=== PATIENT | female | born 1985 | race Caucasian/White ===

== ENCOUNTER 2018-04-22 04:43 | Inpatient (IN) | payer MEDICAID, OTHER ==
[~2018-04-22 04:43] MED LIST: HALOPERIDOL LACT 5 MG/ML INJ ONE; LORazepam 2 MG/ML INJ ONE
[2018-04-22] MEDS ORDERED: MIDAZOLAM 10 MG/2 ML VIAL IM ONE (05:00)
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
[2018-04-22 08:04] LABS: PLATELET COUNT 368 10^3/uL (150-400)
[2018-04-22] MEDS ORDERED: QUEtiapine FUMARATE 50 MG TAB PO ONE (09:32)
[2018-04-22] MEDS ORDERED: OLANZapine 5 MG TAB PO ONE (15:23)
[2018-04-22] MEDS ORDERED: OLANZapine 10 MG/2 ML VIAL ONE (17:56)
[2018-04-22] MEDS ORDERED: LORazepam 2 MG/ML INJ ONE (18:00)
[2018-04-22] MEDS ORDERED: HALOPERIDOL LACT 5 MG/ML INJ ONE (18:00)
[2018-04-22] MEDS ORDERED: HALOPERIDOL LACT 5 MG/ML INJ IM ONE (18:04)
[2018-04-22] MEDS ORDERED: LORazepam 2 MG/ML INJ IM ONE (18:04)
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
--- NOTE | 2018-04-23 15:20 | ASMTTCLDSP ---
TLC Discharge Disposition Disposition: Answers: Admit Disposition Notes: Notes: Pt refused to complete BDI and BSS in the ED. Discharge Concerns/Recommendations: Notes: Per [facility] worker consultation with [facility] ED physician, Dr Cindi Roger MD and [facility] on-call supervisor brine with Sammy Vazquez, both concurred that pt appears to meet 27-65 criteria requiring psychiatric hospitalization as pt appears to be an imminent risk of harm to self/others/gravely disabled due to a mental illness condition. Pt was given the 3N prohibited belongings list while in the ED. [facility] on-call psychiatrist Rupert Bates agreed to accept pt for admission to 3. Was patient given the Answers: Yes Inpatient [facility] Prohibited Belongings List while in the ED? For inpatient Rupert Bates admission, the following psychiatrist agreed to accept patient for admission to [facility] Type of Hold: Answers: M1/72-hour Hold Hold initiated by: Answers: Police Date Signed: 04/23/2018 03:19 PM Electronically Signed By:Cindy Smart
[2018-04-23] MEDS ORDERED: MAG HYDROX/AL HYDROX/SIMETH 30 ML UDCUP PO PRN (15:51)
[2018-04-23] MEDS ORDERED: LORazepam 0.5 MG TAB PO PRN (15:51)
[2018-04-23] MEDS ORDERED: ACETAMINOPHEN 325 MG TAB PO PRN (15:51)
[2018-04-23] MEDS ORDERED: MAGNESIUM HYDROXIDE 30 ML UDCUP PO PRN (15:51)
[2018-04-23] MEDS ORDERED: OLANZapine DISINTEGR 10 MG TAB PO PRN (15:51)
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
--- NOTE | 2018-04-24 10:43 | PDMN ---
Medical Necessity Medical necessity: [facility] [id number] Other Psychotic Disorders, Adult: Inpatient Care. 33y/o Patient dx w/ unspecified psychosis, arrived via police involuntarily. On M1 hold, danger to self and others, gravely disabled. Hx bipolar and jamari episodes.
--- NOTE | 2018-04-24 14:22 | ASMTBHMTP ---
Master Treatment Plan Master Treatment Plan Answers: Mood Instability with for: Psychosis Date: 04/24/2018 Diagnosis on Admission: Bipolar 1 Disorder Expected length of stay: 3-5 Days Reason for admission: Notes: 33 year old female who was brought in by police on M1 hold after she was found naked outside of an apt. building. Pt. had reported she had a few crazy days when she was not taking care of herself. Pt. does not remember being nude. Patient's stated presenting problems: Notes: Don't know exactly what happened. Patient's goals for treatment: Notes: Keep my head down and get out of here Patient's strengths: Notes: Don't know. 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 Master Treatment Plan Required Signatures Psychiatrist signature: Answers: Bg Rivas MD: RN on-shift signature: Answers: RN: Patient signature: Answers: Patient: Date Signed: 04/24/2018 09:29 AM Electronically Signed By:Lora Villa
--- NOTE | 2018-04-24 14:26 | ASMTCMCOM ---
CM Note CM Note Notes: Pt. reports not knowing exactly what happened prior to her being arrested and brought to the hospital. Pt. stated she started "seeing tracers" and felt as though she was having an LSD trip. Pt. denies all drug use. Pt. reports "bumming smokes [from strangers]" and drinking out of water bottles she finds on the street. Pt. stated she may stay with her family in [place] for a little while after discharge Pt. stated she is unsure if she has any current legal issues adding she was "aggressively arrested" prior to being hospitalized. Pt. reports being hospitalized in the past, but refused to discuss this. Pt. reports PTSD symptoms but refuse to discuss her PTSD. Date Signed: 04/24/2018 02:25 PM Electronically Signed By:Lora Villa
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
--- NOTE | 2018-04-24 16:23 | BCON ---
[f rep st] BEHAVIORAL HEALTH CONSULTATION INTERNAL MEDICINE CONSULTATION DATE OF CONSULTATION: 04/24/2018 REFERRING PHYSICIAN: Jann Schafer NP REASON FOR REFERRAL: Medical clearance for inpatient behavioral health stay. HISTORY OF PRESENT ILLNESS: This patient was brought to the emergency department by police eventually was placed on on an M1 hold. She had been found standing outside of an apartment naked and there was a body in the apartment per the emergency department report. Apparently, the police did not think that she was a suspect in the of the person in the apartment. She was very combative initially, but eventually was medicated adequately. She was considered to be acutely manic and was admitted for further psychiatric care. She currently complains of a vaginitis, which she thinks is yeast. There is no discharge, but there is pruritus. She also thinks she has had a little bit of a sore throat, but this has improved. Otherwise, she is without acute complaints. PAST MEDICAL HISTORY: 1. Mental health issues including PTSD and a diagnosis of bipolar. 2. Vaginitis. PAST SURGICAL HISTORY: She has had oral surgery. MEDICATIONS: Prior to admission: 1. Acetaminophen 325 mg p.r.n. 2. Carboxymethylcellulose eyedrops p.r.n. 3. Naproxen 220 mg p.o. b.i.d. p.r.n. 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 She is originally from [place] where her parents live. She is a smoker. She uses occasional alcohol. FAMILY HISTORY: Noncontributory. REVIEW OF SYSTEMS: Other than a slight sore throat and the vaginitis symptoms, a 10-point review of systems was conducted and was negative. Denies URI or allergic symptoms, including no itchy eyes, no head congestion and no runny nose and no cough. PHYSICAL EXAM: VITAL SIGNS: Blood pressure is 113/67, heart rate is 62, respiratory rate is 14, oxygen saturation is 96% on room air, temperature is 36.6 degrees centigrade. Her weight is 69 kg for a body mass index of 23.8. GENERAL: This is a well-nourished, well-developed woman, cooperative and in no acute distress. HEENT: Extraocular movements are intact. Pupils are equal, round, reactive to light. Mucous membranes are moist. Dentition is in good condition. NECK: Supple. HEART: Regular rate and rhythm with no murmurs, rubs, or gallops. LUNGS: Clear to auscultation bilaterally. ABDOMEN: Benign. EXTREMITIES: There is no cyanosis, clubbing, or edema. NEUROLOGIC: She is alert and oriented x3. Cranial nerves 2-12 are grossly intact. There is no focal weakness. Sensation is intact to light touch. Gait is within normal limits. LABORATORY DATA: Laboratory studies from 2 days ago, BMP showed a slightly elevated sodium of 146, and a slightly low carbon dioxide at 20. Otherwise, renal function and electrolytes were within normal limits. Yesterday, she had a benign lipid panel. Hemoglobin A1c was normal at 5.0. Liver function tests revealed a slightly elevated AST at 69, otherwise, were completely normal. Beta hCG was negative for . Hematology 2 days ago showed an elevated white blood cell count of 12.37 with no left shift. It was predominantly neutrophils and monocytes. Toxicology screen in the serum was negative for ethyl alcohol and the urine was negative for any substances of abuse. ASSESSMENT AND RECOMMENDATIONS: 1. Mental health issues. Pending further evaluation and management per Psychiatry and the mental health team. 2. Tobacco dependence syndrome. She was encouraged to quit smoking. 3. Vaginitis. She reports that she uses miconazole nitrate and I see this has been ordered and is appropriate. If she continues to have symptoms despite treatment with the 7 days of vaginal miconazole suppository, then further evaluation could be considered. I see no medical contraindications to this patient's continued stay on the inpatient behavioral health unit or to any psychiatric medications or procedures. Thank you very much for including me in the care of this patient and please do not hesitate to contact me or the hospitalist service should there be need for further medical evaluation. /[id number]/MODL MTDD
[2018-04-24] MEDS: MICONAZOLE NITRATE 100 MG VG SCH (17:37)
[2018-04-24] MEDS ORDERED: OLANZapine DISINTEGR 10 MG TAB PO SCH (21:00)
[2018-04-25] MEDS: [UNRECOGNIZED DRUG - OTHER] PO SCH (08:17)
--- NOTE | 2018-04-25 14:08 | ASMTCMCOM ---
CM Note CM Note Notes: Pt. reports "haning in there". Pt. stated she did get her monistat medication last night. Pt. stated she refused Zyprexa last night, adding "was on in the past, was horrible in past". Pt. reports wanting a integrative psychiatrist, and naturopathic medicine. Pt. stated she has combined every system of medicine she has come across into a system that works best for her. Pt. requested to know when she will discharge so she can make an appointment with her preferred MD. Pt. agreed to allow CC to make follow-up appointments and listed several MDs and therapists, including Dr. Kaye, and Shakir Rivas - therapist in [facility], and Dr. Baltazar. Pt. reports not being comfortable in the hospital and not sleeping well. Pt. stated she has 15 primary objectives and the main one is getting good sleep, which pt. stated she cannot do in this hospital. Pt. denied SI, HI, and AVH. Pt. stated she has paranoia "from being in places like this (began to cry). This is a bad place. I don't want to be here anymore". Pt. presents as labile at times, groomed, alert, disorganized, and with good eye contact. Staff report pt. using yogurt on her yeast infection. Staff report pt. sleeping 10 hours and refusing evening medication. Date Signed: 04/25/2018 02:08 PM Electronically Signed By:Lora Villa
[2018-04-25] MEDS ORDERED: MELATONIN 3 MG TAB PO PRN (17:20)
--- NOTE | 2018-04-25 17:26 | SOAPPROG ---
SOAP Progress Note Assessment/Plan: Assessment: 33 yo unmarried woman with h/o Bipolar disorder which has not been adequately treated for many years. She was admitted d/t recent manic episode when she was running around naked outside her apartment building and was BIB [place] PD on M1. Plan: 04/24/18 15:21 1. and CC met with [facility] for long time today. [facility] lives in [place] and has limited contact with patient since she moved to [place]. However, [facility] reports significant h/ o manic episodes starting at age 17 yo. The last episode occurred in 2014 when [place] was arrested in [place] for cutting luevano in public and screaming at passersby. She was involuntarily hospitalized for "almost 60 days" per [facility]. She was given Laughlin by court order b/c she refused to consent to medication. Prior to that, patient was hospitalized in [place], [place] in 2008 for similar episode. She was in hospital x 1 month and also placed on lithium per court order. [facility] states that patient is "usually calm and mild" when she isn't manic. [facility] credits her with having some insight, but not enough to seek voluntary mental health treatment or take medications when she isn't in hospital under court order. [facility] states that patient was taking chemistry class at [employer] this Summer. Patient felt the class was difficult and stressful. [facility] reports patient has been feeling sad, depressed for several months, and a PCP at [facility] started her on Wellbutrin in 12/2017. [facility] doesn't think patient was taking medication regularly. Patient told [facility] she has smoked marijuana "about a week ago." [facility] reports that patient used ETOH and THC regularly between [id number], but states patient has been "sober" since 2012. However, [facility] admits that she lives in [place] and doesn't know what patient does. [facility] says patient started sounding "different" on phone about a week ago. That's when [facility] thinks this current manic episode started. 2. [facility] reports patient was first dx with Bipolar disorder at age 17 yo. She tried Depakote, Trileptal and Lamictal but didn't stay on any of these meds for more than a month per [facility]. There were no adverse SE's according to [facility], but patient just "didn't like taking meds." [facility] states patient has never voluntarily taken any meds since 17 yo. 3. Police have reported that a homeless man OD'd on drugs in patient's apartment , but they aren't charging patient with any crime. 4. Patient is refusing any psychotropic medication. Will order Zyprexa 10mg PO QHS in addition to 5mg PO Q4H PRN in case she changes her mind. 5. Will likely need to petition for court order medications. Laughlin and VPA are likely to be most effective options given MO's report. 6. Will place on STC when M1 expires. 7. Patient has yeast infection. Will order Monistat 7 to treat. 8. [facility] also brought in bottle of probiotic supplements which patient can take. 9. Request hospitalist to evaluate and make recommendations for further tx. 04/25/18 17:21 1. Patient states she doesn't need "Western medicine" to treat her bipolar disorder. She wants to resume working with "naturopathic doctor, energy healer and Tibetan healer" at [facility] in [place] and here in [place]. She says "I told all this to the woman (Lora, the ) and she wrote it all down." MD encouraged her to consent to trial of Laughlin since this was helpful for her during her previous 2 psych hospitalizations (in [place] in 2014 and in [place] in 2008). Patient says "you don't know what you're talking about...you're wrong. " 2. MD explained why patient was being placed on STC and the criteria for coming off cert, including resolution of psychotic sxs, no unsafe or reckless bxs, and stable mood. Patient said she would "get a legal team" and fight the STC in court. 3. Staff had to remind patient not to put yogurt on her vagina. She thought this was an effective tx for her yeast infx. MD encouraged her to use Monistat instead. 4. Patient requested melatonin for sleep. 5. STC Subjective: Met with patient, reviewed chart and d/w staff. MD met with patient and her MOC during visiting time. Patient insisted she could present "my side of things" and show bmx rider in court that she didn't need to take "Western medicine." She insists that she would benefit more from "Tibetan healers" than she would from psychotropic medications. She refuses to take Olanzapine and any other "of your drugs" except for melatonin because "it's natural." Objective: Vital Signs Temp Pulse Resp BP Pulse Ox 36.7 C 56 L 14 106/58 L 97 04/25/18 06:00 04/25/18 06:00 04/25/18 06:00 04/25/18 06:00 04/25/18 06:00 MSE: Affect: Irritable at times, labile Mood: "Fine" TP: Disorganized, illogical TC: Denies any SI/HI, denies AH/VH, still delusional Insight/ Judgment: Impaired - Time Spent With Patient Time Spent With Patient: 25" - Pending Discharge Pending Discharge Within 24 Hours: No Pending Discharge Within 48 Hours: No ICD10 Worksheet Patient Problems: Problems Problem Status Onset Psychosis Acute
[2018-04-25] MEDS: MICONAZOLE NITRATE 100 MG VG SCH (21:18)
[2018-04-26] MEDS: [UNRECOGNIZED DRUG - OTHER] PO SCH (08:29)
--- NOTE | 2018-04-26 10:55 | SOAPPROG ---
SOAP Progress Note Assessment/Plan: Assessment: Bipolar I Disorder. Current hypomania. Patient is not safe to discharge at this time as patient continues to exhibit signs of jamari, and express jamari ( irritability, agitation) symptoms. Patient requires continued inpatient care because of current mood instability, and requires inpatient level of care to stabilize in order to no longer be a danger to himself/herself, gravely disabled due to mental illness. Patient could benefit from continued inpatient hospitalization for crisis stabilization, safety, and medication evaluation. Plan: Review psychotropic medication treatment informed consent and recommendations. After reviewing options, risk and benefits, patient agrees to continue medications with the following changes. Medication changes include start trial of Zyprexa Zydis 10 mg po QHS. No other medication changes at this time as more time is needed to determine ongoing tolerability and efficacy. Plan is to continue to observe patient for response and side effects from medications, and ongoing monitoring and evaluation. Next steps are for patient to meet with hospice home care coordinator to plan a safe discharge plan and establish outpatient services for ongoing treatment. Consider discharge on Thursday if patient is in stable condition, safe, and has a safe discharge plan. PSYCHOTROPIC MEDICATION TREATMENT INFORMED CONSENT and RECOMMENDATIONS: Review nature of condition, diagnosis, and prognosis. Review nature and purpose of psychotropic medication treatment. Review type of psychotropic medications being ordered. Review risk and benefits of psychotropic medication treatment. Review probable length of time patient will need to take medications. Review risk and benefits of not undergoing psychotropic medication treatment. Review alternative treatments to psychotropic medications. Review psychotropic medications contraindications, drug-drug interactions, side effects, and importance of reporting any side effects to a psychiatric provider or nurse during inpatient hospitalization, and upon discharge to patients psychiatric outpatient provider, primary care provider, or other health rn complex care. Review importance of asking a nurse, psychiatric provider, or primary care provider any questions or problems concerning the psychotropic medications. Verify patient understands the information that has been provided, and understands, accepts, and agrees to psychotropic medications. Review patients safety plan and importance of patient to report to staff while hospitalized if patient is ever a danger to self/others, or unable to care for self, and upon discharge, the importance for patient to contact [facility] or 1, or go to the nearest emergency room, if patient is ever a danger to self/others, or unable to care for self. Recommend that upon discharge patient establish medication management treatment with a psychiatric provider, establishes routine therapy appointments, and follow-up with primary care provider. Verify patient understands and agrees to these recommendations. 04/26/18 11:40 Subjective: Following up with patient for evaluation of jamari, depression, and safety. Patient reports, "Not sleeping very well." Patient expresses the following psychiatric symptoms anxiety. Patient reports appetite as good, and reports eating all meals. Patient describes getting about 6 hours of sleep, and states she awoke several times throughout the night. Objective: Vital Signs Temp Pulse Resp BP Pulse Ox 36.6 C 50 L 16 106/62 97 04/26/18 06:00 04/26/18 06:00 04/26/18 06:00 04/26/18 06:00 04/26/18 06:00 NURSING REPORT: Consulted with nursing for update on patients progress in treatment. Nurses report patient is engaged in treatment, is attending groups, slept 6.5 hours, expresses the following psychiatric symptoms: anxiety, exhibits the following psychiatric symptoms: hypertalkative and tangential; is eating all meals, is taking medications as prescribed with no report of side effects, with no s/s of EPS/akathisia, and denies SI/HI, A/V hallucinations. [employer]TLING T[employer]ER UPDATE: current working on setting up appointment for OP psychiatric follow-up. The patient is a well-nourished female looking stated chronological age. Attire is appropriate and dress is casual, and is neat. Grooming status is appropriate. Ambulation is independent. Gait is normal and coordinated. Posture is normal and relaxed. Eye contact is appropriate. Motor activity is appropriate with purposeful, organized, coordinated movements; with no involuntary movements. Attitude is cooperative and friendly. Patient appears distractible and does not relate well to this interviewer. Language production is spontaneous. Rate is pressured. Latency of response is shortened, with irritable tone, and appropriate volume, and amount is hypertalkative. Articulation is clear with no evidencing of speech impairments. Patient reports mood as agitated with labile, expansive, and inappropriate affect. Patients thought process is tangential with loose associations. Patient does not report suicidal/homicidal thoughts, ideas, or plans. Patient denies auditory, visual hallucinations. Patient denies delusions. Patient does not appear to be attending to internal stimuli. Patients attention and concentration are poor. Patient is oriented to person, place, time. Patients insight is poor. Patients judgment is poor. No evidence of gross cognitive dysfunction at any point during the interview. No evidence of apparent dysfunction in recent or remote memory. - Time Spent With Patient Time Spent With Patient: 30 minutes, met with patient individually. - Pending Discharge Pending Discharge Within 24 Hours: No Pending Discharge Within 48 Hours: No ICD10 Worksheet Patient Problems: Problems Problem Status Onset Psychosis Acute
[2018-04-26] MEDS: NICOTINE POLACRILEX 2 MG GUM B PRN (12:12)
--- NOTE | 2018-04-26 14:12 | ASMTCMCOM ---
CM Note CM Note Notes: Pt. reports she is "in shock" after learning about a body that was found in her home. Pt. stated she is scared about what happened. Pt. stated "not the level of stuff I'm used to dealing with". Pt. stated she no longer believes she has a yeast infection, but rather pt. believes she has a bacterial infection. Pt. stated she believes using yogurt externally will be helpful, CC advised against this. Pt. stated she has stopped using the Monistat. Pt. stated upon discharge she wants to visit family on [facility] the [facility], and then go to [place]. Pt. requested follow-up appointments with [facility], [facility], and with [facility] in [place]. Pt. stated she doesn't like [facility] but is somewhat willing to work with them if needed. Pt. denied SI, HI, AVH and paranoia. Pt. presents as liable, alert, wearing several layers of clothing and a shirt covering her hair, and with good eye contact. Staff report pt. sleeping 6.5 hours and pt. agreed to take Zyprexa. Date Signed: 04/26/2018 02:11 PM Electronically Signed By:Lora Villa
--- NOTE | 2018-04-26 14:38 | ASMTBHDC ---
Notes Note: Notes: CC spoke with Medicaid liaison who stated pt. is being place on . [place] waitlist. Provider notified and will inform pt. Date Signed: 04/26/2018 02:37 PM Electronically Signed By:Lora Villa
--- NOTE | 2018-04-26 14:51 | SOAPPROG ---
SOAP Progress Note Assessment/Plan: Assessment: Vaginitis: symptomatic despite treatment with Monistat. * D/C Monistat 04/26/2018. * Urine test for GC & Chlamydia. If positive, will treat, and test for other STDs. * If negative, consider presumptive treatment for bacterial vaginitis, which would also cover trichomonas. * Equipment not available on [facility] health unit for pelvic exam. Advise that nursing examine external genitalia for signs of tinea cruris or other skin or mucosal lesions. 04/26/18 14:48 Subjective: Informed that Monistat is not working and patient desires further evaluation. Objective: Vital Signs Temp Pulse Resp BP Pulse Ox 36.6 C 50 L 16 106/62 97 04/26/18 06:00 04/26/18 06:00 04/26/18 06:00 04/26/18 06:00 04/26/18 06:00 ICD10 Worksheet Patient Problems: Problems Problem Status Onset Psychosis Acute
[2018-04-26] MEDS ORDERED: OLANZapine 10 MG TAB PO SCH (21:00)
[2018-04-26] MEDS: MELATONIN 1 MG SL SCH ×2 (21:37→22:00)
[2018-04-26] MEDS: OLANZapine DISINTEGR 10 MG TAB PO SCH (21:37)
[2018-04-26] MEDS: MICONAZOLE NITRATE 100 MG VG SCH ×2 (21:37→21:59)
[2018-04-27] MEDS: [UNRECOGNIZED DRUG - OTHER] PO SCH (07:50)
--- NOTE | 2018-04-27 10:40 | SOAPPROG ---
SOAP Progress Note Assessment/Plan: Assessment: Bipolar I Disorder. Current hypomania; patient has improved since time of admission; continues to be tangential, labile, and irritable towards staff. Patient could benefit from continued inpatient hospitalization for crisis stabilization, safety, and medication evaluation. Patient requires inpatient level of care for medication evaluation and further observation to determine if jamari has resolved and patients mood reaches a level of stability that she can be managed by a lower level of treatment. Plan: Review psychotropic medication treatment informed consent and recommendations. After reviewing options, risk and benefits, patient agrees to continue current medications. No other medication changes at this time as more time is needed to determine ongoing tolerability and efficacy. Plan is to continue to observe patient for response and side effects from medications, and ongoing monitoring and evaluation. Next steps are for patient to meet with childcare teacher to plan a safe discharge plan and establish outpatient services for ongoing treatment. Consider discharge on if patient is in stable condition, safe, and has a safe discharge plan. PSYCHOTROPIC MEDICATION TREATMENT INFORMED CONSENT and RECOMMENDATIONS: Review nature of condition, diagnosis, and prognosis. Review nature and purpose of psychotropic medication treatment. Review type of psychotropic medications being ordered. Review risk and benefits of psychotropic medication treatment. Review probable length of time patient will need to take medications. Review risk and benefits of not undergoing psychotropic medication treatment. Review alternative treatments to psychotropic medications. Review psychotropic medications contraindications, drug-drug interactions, side effects, and importance of reporting any side effects to a psychiatric provider or nurse during inpatient hospitalization, and upon discharge to patients psychiatric outpatient provider, primary care provider, or other health live in caregiver. Review importance of asking a nurse, psychiatric provider, or primary care provider any questions or problems concerning the psychotropic medications. Verify patient understands the information that has been provided, and understands, accepts, and agrees to psychotropic medications. Review patients safety plan and importance of patient to report to staff while hospitalized if patient is ever a danger to self/others, or unable to care for self, and upon discharge, the importance for patient to contact [facility] or [facility], or go to the nearest emergency room, if patient is ever a danger to self/others, or unable to care for self. Recommend that upon discharge patient establish medication management treatment with a psychiatric provider, establishes routine therapy appointments, and follow-up with primary care provider. Verify patient understands and agrees to these recommendations. 04/27/18 10:38 Objective: Vital Signs Temp Pulse Resp BP Pulse Ox 36.5 C 71 14 110/61 97 04/27/18 06:00 04/27/18 06:00 04/27/18 06:00 04/27/18 06:00 04/27/18 06:00 NURSING REPORT: Consulted with nursing for update on patients progress in treatment. Nurses report patient is engaged in treatment, is attending groups, slept 7 hours, expresses the following psychiatric symptoms: mild anxiety, exhibits the following psychiatric symptoms: irritable, liable, bizarre behavior --patient is irritable and inappropriate in groups. Patient is attending to ADLs, is eating all meals, is taking medications as prescribed with no report of side effects, with no s/s of EPS/akathisia, and denies SI/HI, A/V hallucinations. ATHLETIC DIRECTOR UPDATE: current working on setting up appointment for OP psychiatric follow-up. The patient is a well-nourished female looking stated chronological age. Attire is appropriate and dress is casual, and is neat. Grooming status is appropriate. Ambulation is independent. Gait is normal and coordinated. Posture is normal and relaxed. Eye contact is appropriate. Motor activity is appropriate with purposeful, organized, coordinated movements; with no involuntary movements. Attitude is cooperative and friendly. Patient is attentive and relates well to this interviewer. Language production is spontaneous. R/R/V normal. Articulation is clear with no evidencing of speech impairments. Patient reports mood as tired with congruent affect. Patients thought process is less tangential, more linear and logical. Patient does not report suicidal/homicidal thoughts, ideas, or plans. Patient denies auditory, visual hallucinations. Patient denies delusions. Patient does not appear to be attending to internal stimuli. Patients attention and concentration are adequate. Patient is oriented to person, place, time. Patients insight is fair. Patients judgment is fair. No evidence of gross cognitive dysfunction at any point during the interview. No evidence of apparent dysfunction in recent or remote memory. - Time Spent With Patient Time Spent With Patient: 15 minutes, met with patient individually. - Pending Discharge Pending Discharge Within 24 Hours: No Pending Discharge Within 48 Hours: No ICD10 Worksheet Patient Problems: Problems Problem Status Onset Bipolar I disorder, current or most recent episode manic, severe with mood- congruent psychotic features Acute Psychosis Acute
[2018-04-27 12:15] LABS: GC AMPLIFICATION GENPROBE NEGATIVE (NEGATIVE)
[2018-04-27] MEDS: NICOTINE POLACRILEX 2 MG GUM B PRN (15:43)
[2018-04-27] MEDS: MELATONIN 1 MG SL SCH (20:41)
[2018-04-27] MEDS: OLANZapine DISINTEGR 10 MG TAB PO SCH ×2 (20:41→22:27)
[2018-04-27] MEDS ORDERED: diphenhydrAMINE 25 MG CAP PO ONE (21:00)
[2018-04-28] MEDS: [UNRECOGNIZED DRUG - OTHER] PO SCH (07:56)
--- NOTE | 2018-04-28 09:05 | SOAPPROG ---
SOAP Progress Note Assessment/Plan: Assessment: Bipolar I Disorder. Current hypomania; patient has improved since time of admission; continues to exhibit signs of jamari including grandiose, tangential, irritable, and hypertalkative. Patient could benefit from continued inpatient hospitalization for crisis stabilization, safety, and medication evaluation. Patient requires inpatient level of care for medication evaluation and further observation to determine if jamari has resolved and patients mood reaches a level of stability that she can be managed by a lower level of treatment. Plan: Review psychotropic medication treatment informed consent and recommendations. After reviewing options, risk and benefits, patient agrees to continue current medications. No medication changes at this time as more time is needed to determine ongoing tolerability and efficacy. Plan is to continue to observe patient for response and side effects from medications, and ongoing monitoring and evaluation. Next steps are for patient to meet with lawn care professional to plan a safe discharge plan and establish outpatient services for ongoing treatment. Consider discharge on Thursday if patient is in stable condition, safe, and has a safe discharge plan. PSYCHOTROPIC MEDICATION TREATMENT INFORMED CONSENT and RECOMMENDATIONS: Review nature of condition, diagnosis, and prognosis. Review nature and purpose of psychotropic medication treatment. Review type of psychotropic medications being ordered. Review risk and benefits of psychotropic medication treatment. Review probable length of time patient will need to take medications. Review risk and benefits of not undergoing psychotropic medication treatment. Review alternative treatments to psychotropic medications. Review psychotropic medications contraindications, drug-drug interactions, side effects, and importance of reporting any side effects to a psychiatric provider or nurse during inpatient hospitalization, and upon discharge to patients psychiatric outpatient provider, primary care provider, or other health senior care manager. Review importance of asking a nurse, psychiatric provider, or primary care provider any questions or problems concerning the psychotropic medications. Verify patient understands the information that has been provided, and understands, accepts, and agrees to psychotropic medications. Review patients safety plan and importance of patient to report to staff while hospitalized if patient is ever a danger to self/others, or unable to care for self, and upon discharge, the importance for patient to contact [facility] or [facility], or go to the nearest emergency room, if patient is ever a danger to self/others, or unable to care for self. Recommend that upon discharge patient establish medication management treatment with a psychiatric provider, establishes routine therapy appointments, and follow-up with primary care provider. Verify patient understands and agrees to these recommendations. 04/28/18 09:04 Subjective: Following up with patient for evaluation of jamrai, depression, and safety. Patient reports, "Slept really well again last night, and don't feel as sedated this morning. Last night is the best sleep I have had in over 1.5 weeks. Feel like the Zyprexa is making me feel more grounded." Patient expresses the following psychiatric symptoms: none. Patient reports appetite as good, and reports eating all meals. Patient describes getting about 8 hours of sleep, and states she slept throughout the night. 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 Patient reports she then plans to return to classes at [employer] in [place]. Patient states she is currently working on getting her undergraduate for several different degrees including MD [employer], nursing, EMT, and pharmacy. Objective: Vital Signs Temp Pulse Resp BP Pulse Ox 36.5 C 71 14 110/61 97 04/27/18 06:00 04/27/18 06:00 04/27/18 06:00 04/27/18 06:00 04/27/18 06:00 NURSING REPORT: Consulted with nursing for update on patients progress in treatment. Nurses report patient is engaged in treatment, is attending groups, slept 8 hours, expresses the following psychiatric symptoms: mild anxiety, exhibits the following psychiatric symptoms: grandiose, irritable, liable, hypertalkative, and tangential. Patient is attending to ADLs, is eating all meals, is taking medications as prescribed with no report of side effects, with no s/s of EPS/akathisia, and denies SI/HI, A/V hallucinations. 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 Patient to be set-up with appointment with Alison Yao at [facility] prior to discharge from hospital. The patient is a well-nourished female looking stated chronological age. Attire is appropriate and dress is casual, and is neat. Grooming status is appropriate. Ambulation is independent. Gait is normal and coordinated. Posture is normal and relaxed. Eye contact is appropriate. Motor activity is appropriate with purposeful, organized, coordinated movements; with no involuntary movements. Attitude is cooperative and friendly. Patient is attentive and relates well to this interviewer. Language production is spontaneous, rate is pressured, rhythm and volume appropriate. Articulation is clear with no evidencing of speech impairments. Patient reports mood as good with expansive affect. Patients thought process is tangential, grandiose, non- linear, and illogical. Patient does not report suicidal/homicidal thoughts, ideas, or plans. Patient denies auditory, visual hallucinations. Patient denies delusions. Patient does not appear to be attending to internal stimuli. Patients attention and concentration are adequate. Patient is oriented to person, place, time. Patients insight is poor. Patients judgment is poor. No evidence of gross cognitive dysfunction at any point during the interview. No evidence of apparent dysfunction in recent or remote memory. - Time Spent With Patient Time Spent With Patient: 20 minutes, met with patient individually. - Pending Discharge Pending Discharge Within 24 Hours: No Pending Discharge Within 48 Hours: No ICD10 Worksheet Patient Problems: Problems Problem Status Onset Bipolar I disorder, current or most recent episode manic, severe with mood- congruent psychotic features Acute Psychosis Acute
--- NOTE | 2018-04-28 11:25 | ASMTCMCOM ---
CM Note CM Note Notes: Pt. reports "dealing with the effects of Zyprexa" and her yeast infection. Pt. stated she slept "pretty heavy", adding this is a good thing. Pt. stated she is wanting to decrease her Zyprexa to 5mg. Pt. asked about accompanied grounds. Pt. requested to take her probiotic at night or twice a day, just as long as she can take it in the evening. Pt. stated she is "trying to be as peaceful as I can". Pt. denied SI, HI, and AVH. Pt. stated she has paranoia "being in a place I don't feel safe". Pt. stated she is "trying not to roll my eye all over the place". Pt. presents as labile, guarded, alert, and with good eye contact. Staff report pt. sleeping 5.5 hours and being medication compliant. Date Signed: 04/28/2018 11:24 AM Electronically Signed By:Lora Villa
[2018-04-28] MEDS: ARIPiprazole 10 MG TAB PO SCH (14:22)
--- NOTE | 2018-04-28 14:38 | SOAPPROG ---
SOAP Progress Note Assessment/Plan: Assessment: Vaginitis: symptomatic despite treatment with Monistat. * D/C Monistat 04/26/2018. * Urine test negative for GC & Chlamydia. * Per her request will try alternative topical antifungal with clotrimazole at bedtime x7 days. * Given like a specific symptoms, urinary tract infection is highly unlikely and will not treat even if she has positive culture result. * Equipment not available [facility] for pelvic exam. 04/28/18 14:37 Subjective: Complains of continued vaginal itching both external and internal. Says that she got better for 1 day and then worse after that on 2nd dose of Monistat vaginal suppository. Thinks she may have a bacterial infection as well but does not want to take oral antibiotics. Does not want to take oral fluconazole. Asks for on alternative topical anti yeast cream. Denies specific symptoms of urinary tract infection with no dysuria. She reports she always has urinary frequency and believes that is a consequence of having taken lithium. Objective: Vital Signs Temp Pulse Resp BP Pulse Ox 36.5 C 71 14 110/61 97 04/27/18 06:00 04/27/18 06:00 04/27/18 06:00 04/27/18 06:00 04/27/18 06:00 ICD10 Worksheet Patient Problems: Problems Problem Status Onset Bipolar I disorder, current or most recent episode manic, severe with mood- congruent psychotic features Acute Psychosis Acute
[2018-04-28] MEDS: OLANZapine DISINTEGR 10 MG TAB PO SCH (19:41)
[2018-04-28] MEDS: MELATONIN 1 MG SL SCH (19:41)
[2018-04-28] MEDS: [UNRECOGNIZED DRUG - OTHER] PO SCH (19:42)
[2018-04-28] MEDS: CLOTRIMAZOLE 1% 45 GM VAG CREAM VG SCH (21:37)
[2018-04-29] MEDS ORDERED: OLANZapine DISINTEGR 5 MG TAB PO SCH (08:17)
--- NOTE | 2018-04-29 08:25 | SOAPPROG ---
SOAP Progress Note Assessment/Plan: Assessment: Bipolar I Disorder. Current hypomania; patient has improved since time of admission; continues to exhibit signs of jamari including grandiose, tangential, irritable, and hypertalkative. Patient could benefit from continued inpatient hospitalization for crisis stabilization, safety, and medication evaluation. Patient requires inpatient level of care for medication evaluation and further observation to determine if jamari has resolved and patients mood reaches a level of stability that she can be managed by a lower level of treatment. Plan: Review psychotropic medication treatment informed consent and recommendations. After reviewing options, risk and benefits, patient agrees to continue current medications. Lower Zyprexa Zydis HS to 5 mg. No other medication changes at this time as more time is needed to determine ongoing tolerability and efficacy. Plan is to continue to observe patient for response and side effects from medications, and ongoing monitoring and evaluation. Next steps are for patient to meet with manager primary care to plan a safe discharge plan and establish outpatient services for ongoing treatment. Consider discharge on Thursday if patient is in stable condition, safe, and has a safe discharge plan. PSYCHOTROPIC MEDICATION TREATMENT INFORMED CONSENT and RECOMMENDATIONS: Review nature of condition, diagnosis, and prognosis. Review nature and purpose of psychotropic medication treatment. Review type of psychotropic medications being ordered. Review risk and benefits of psychotropic medication treatment. Review probable length of time patient will need to take medications. Review risk and benefits of not undergoing psychotropic medication treatment. Review alternative treatments to psychotropic medications. Review psychotropic medications contraindications, drug-drug interactions, side effects, and importance of reporting any side effects to a psychiatric provider or nurse during inpatient hospitalization, and upon discharge to patients psychiatric outpatient provider, primary care provider, or other health nursing care attendant. Review importance of asking a nurse, psychiatric provider, or primary care provider any questions or problems concerning the psychotropic medications. Verify patient understands the information that has been provided, and understands, accepts, and agrees to psychotropic medications. Review patient's safety plan and importance of patient to report to staff while hospitalized if patient is ever a danger to self/others, or unable to care for self, and upon discharge, the importance for patient to contact [facility] or [facility], or go to the nearest emergency room, if patient is ever a danger to self/others, or unable to care for self. Recommend that upon discharge patient establish medication management treatment with a psychiatric provider, establishes routine therapy appointments, and follow-up with primary care provider. Verify patient understands and agrees to these recommendations. 04/29/18 08:24 Subjective: Following up with patient for evaluation of jamari, depression, and safety. Patient reports, "Slept really well again last night, and feel over-sedated this morning." Patient requests a lower dose of Zyprexa at bedtime due to over- sedation this AM. Patient states she has been over weight in the past (280 lbs) , and states she is concerned about gaining weight on Zyprexa. Patient agrees to continue Abilify as less likely to cause weight gain. Patient expresses the following psychiatric symptoms: none. Patient reports appetite as good, and reports eating all meals. Patient describes getting about 8 hours of sleep, and states she slept throughout the night. Objective: Vital Signs Temp Pulse Resp BP Pulse Ox 36.3 C 63 14 108/54 L 97 04/29/18 06:00 04/29/18 06:00 04/29/18 06:00 04/29/18 06:00 04/29/18 06:00 NURSING REPORT: Consulted with nursing for update on patients progress in treatment. Nurses report patient is engaged in treatment, is attending groups, slept 8 hours, expresses the following psychiatric symptoms: irritability, exhibits the following psychiatric symptoms: grandiose, irritable, liable, hypertalkative, and tangential. Patient is attending to ADLs, is eating all meals, is taking medications as prescribed with no report of side effects, with no s/s of EPS/akathisia, and denies SI/HI, A/V hallucinations. 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 Patient has appointments set with her OP psychiatrist in [place] and with OP providers in [place] for immediately following discharge. The patient is a well-nourished female looking stated chronological age. Attire is appropriate and dress is casual, and is neat. Grooming status is appropriate. Ambulation is independent. Gait is normal and coordinated. Posture is normal and relaxed. Eye contact is appropriate. Motor activity is appropriate with purposeful, organized, coordinated movements; with no involuntary movements. Attitude is cooperative and friendly. Patient is attentive and relates well to this interviewer. Language production is spontaneous, rate is pressured, rhythm and volume appropriate. Articulation is clear with no evidencing of speech impairments. Patient reports mood as okay with expansive and irritable affect. Patients thought process is tangential, grandiose, non-linear, and illogical. Patient does not report suicidal/ homicidal thoughts, ideas, or plans. Patient denies auditory, visual hallucinations. Patient denies delusions. Patient does not appear to be attending to internal stimuli. Patients attention and concentration are adequate. Patient is oriented to person, place, time. Patients insight is poor. Patients judgment is poor. No evidence of gross cognitive dysfunction at any point during the interview. No evidence of apparent dysfunction in recent or remote memory. - Time Spent With Patient Time Spent With Patient: 15 minutes, met with patient individually. - Pending Discharge Pending Discharge Within 24 Hours: No Pending Discharge Within 48 Hours: No ICD10 Worksheet Patient Problems: Problems Problem Status Onset Bipolar I disorder, current or most recent episode manic, severe with mood- congruent psychotic features Acute Psychosis Acute
[2018-04-29] MEDS: ARIPiprazole 10 MG TAB PO SCH (08:26)
[2018-04-29] MEDS: [UNRECOGNIZED DRUG - OTHER] PO SCH ×2 (08:28→21:15)
--- NOTE | 2018-04-29 12:37 | ASMTBHDC ---
Notes Note: Notes: CC received a call from [facility], noting that they would like client's information as well as have a bed ready for her today. CC spent a lot of time sending client's file over to [facility] staff, currently under review with medical equipment repairer; however, client will be discharging to their care later today. ETA unknown at this time. Date Signed: 04/29/2018 12:37 PM Electronically Signed By:Sharif Sears
[2018-04-29] MEDS: NICOTINE POLACRILEX 2 MG GUM B PRN (14:49)
--- NOTE | 2018-04-29 15:06 | ASMTBHDC ---
Notes Note: Notes: CC contacted admissions at [phone] to inquire about status of transfer, etc. After speaking with Kathia; she noted that "due to client having potential sex on the day of admission/day of urine screen, they would need additional blood work to confirm client is not etc. CC had provider in office to help relay any additional/missing information. Provider is going to order blood test, and according to Kathia, "we will hold on to your bed for her until we get blood results." Discharge moved to tomorrow Date Signed: 04/29/2018 03:05 PM Electronically Signed By:Sharif Sears
[2018-04-29] MEDS: CLOTRIMAZOLE 1% 45 GM VAG CREAM VG SCH (21:15)
[2018-04-29] MEDS: MELATONIN 1 MG SL SCH ×2 (21:15→21:18)
[2018-04-30 06:46] VITALS: BP 102/49
[2018-04-30] MEDS: ARIPiprazole 10 MG TAB PO SCH (08:18)
[2018-04-30] MEDS: [UNRECOGNIZED DRUG - OTHER] PO SCH (08:19)
--- NOTE | 2018-04-30 12:09 | BDS ---
[f rep st] BEHAVIORAL HEALTH DISCHARGE SUMMARY REASON FOR ADMISSION: From the ED note dated 04/22/2018, the patient was brought to the ED extremely combative wearing a spit dior and requiring Versed for sedation. From the TLC evaluation dated 04/23/2018, the patient was unable to talk due to her mental state and she was agitated and threw food all over her room. The patient reported she had a few crazy days and she was not taking care of herself. The patient did report history of manic episodes. The patient was admitted involuntarily on an M1 hold due to being a danger to herself, others, and also gravely disabled due to her bipolar mental illness. The patient was admitted for safety crisis stabilization and medication evaluation. ADMISSION DIAGNOSIS: Bipolar 1 disorder, current or most recent episode manic, severe, with mood congruent psychosis. ADMISSION PHYSICAL EXAMINATION: Patient was seen by Dr. Mcelroy on 04/24/2018, for an internal medicine consultation. REASON FOR REFERRAL: Medical clearance for inpatient Behavioral Health stay. Dr. Mcelroy reported he saw no medical contraindications to the patient's continued stay on the inpatient behavioral health unit or to any psychiatric medications or procedures. For further details, please refer to Dr. Mcelroy's note dated 04/24/2018. ADMISSION LABS: Laboratory studies from the ED, BMP showed a slightly elevated sodium of 146 and a slightly low carbon dioxide at 20. Otherwise, renal function and electrolytes were within normal limits. From 04/23/2018, the patient's lipid panel was benign. Hemoglobin A1c was normal at 5.0. Liver function tests revealed a slightly elevated AST at 69, otherwise were completely normal. [facility] [place] Hematology on 04/22/2018, showed an elevated white blood cell count of 12.37 with no left shift. It was predominantly neutrophils and monocytes. From the ED, toxicology screen in the serum was negative for ethyl alcohol and the urine was negative for any substances of abuse. The patient's beta HCG quantitative from 04/23/2018, was less then 2.39. This was drawn again on 04/30/2018, prior to discharge, with the same result at less than 2.39. The patient's ferritin from 04/20/2018, was 13.0. HIV 1 and 2 antibody were ordered and results are currently pending. Urinalysis from 04/26/2018, showed a trace of urine leukocyte esterase and urine white blood cells were elevated between 3-5. From 04/28/2018, urinalysis showed an elevated 2+ urine electrolyte esterase, elevated 5-10 urine red blood cells, elevated 10-15 urine white blood cells, elevated urine bacteria at 1+. There were no major procedures or tests completed during the hospitalization other than these admission labs. HOSPITAL COURSE: The most prominent symptoms and behaviors while the patient was here were disorganized behavior and thought process, and jamari symptoms upon admission of the patient is being tangential and hypertalkative. At time of discharge, patient is no longer exhibiting jamari symptoms and is now exhibiting depression symptoms. Modalities utilized during hospitalization were milieu and group therapy. Zyprexa 10 mg p.o. at bedtime was prescribed to target jamari symptoms, was tolerated with no report of side effects, and with good response. After several days on Zyprexa, the patient reported concerns of weight gain and reported that she could feel as though her appetite was increasing. The patient reported concerns of gaining weight as she reported that she has been "heavy" in the past and weighed "280 pounds." Patient agreed to taper and discontinue Zyprexa and patient agreed to start Abilify 10 mg p.o. daily to target mood symptoms. Abilify was tolerated with no report of side effects and with good response, and at time of discharge, the patient is currently on Abilify 10 mg p.o. daily. The patient's response to treatment thus far has been fair. There were no adverse or unexpected results of treatment. The patient has been safe throughout her stay, active in treatment, attended and engaged in groups, and was appropriate with staff and other patients. The treatment team consensus is the patient is in stable enough condition to discharge and transfer to [facility] for continued treatment. CONDITION ON DISCHARGE: The patient's level of risk at time of discharge is low. MENTAL STATUS EXAM: The patient is a well-nourished female looking stated chronological age. Attire is appropriate and dress is casual and neat and clean. Grooming status is appropriate and clean. Ambulation is independent. Gait is normal and coordinated. Posture is normal and relaxed. Eye contact is appropriate and adequate. Motor activity is appropriate with purposeful, organized, coordinated, movements with no involuntary movements noted the patient's attitude is cooperative and friendly. The patient appears distractible, however, relates well to this interviewer. Language production is spontaneous. Rate is fluent. Latency of response is adequate with sad tone and appropriate volume, and amount is appropriate. Articulation is clear. Patient reports mood as "depressed" with flat affect. The patient's thought process is linear and logical with no loose associations, tangential thought, thought blocking, concrete thinking, or any other signs of formal thought disorder. The patient does not report suicidal, homicidal thoughts, ideas, or plans. Patient denies auditory or visual hallucinations. Patient denies delusions. Patient does not appear to be attending to internal stimuli. The patient is oriented to person, place, time, and situation. The patient's attention and concentration are adequate. The patient's insight is impaired. Patient's judgment is impaired. There is no evidence of gross cognitive dysfunction at any point during the interview and no evidence of apparent dysfunction in recent or remote memory noted. The patient does not report undesirable side effects from current medications. The patient has been sleeping an average of 7 hours per night. The patient's appetite is reported as good and patient is eating all meals. DISCHARGE DIAGNOSIS/PRINCIPAL DIAGNOSIS: Bipolar 1 disorder, currently depressed, severe, with mood congruent psychotic features. CURRENT MEDICATIONS: Aleve 220 mg p.o. twice daily p.r.n. for mild pain, Tylenol 325 mg p.o. daily p.r.n. for headache, Refresh Celluvisc 1 drop each eye daily as needed for dry eyes, melatonin 1 mg SL bedtime, Abilify 10 mg p.o. daily for mood, Clotrimazole 1% cream one application VG bedtime, Ultimate Nellie probiotic 1 capsule p.o. daily. DISPOSITION: The patient left hospital and is to be transferred to [facility]. FOLLOWUP: civil preparedness coordinator reports the appropriate outpatient follow-up services have been established and outpatient appointments have been scheduled. The patient received written instructions with times and dates of outpatient follow-up appointments. The following follow-up recommendations were provided to the patient at discharge: Continue psychotropic medications as prescribed and attend appointments as scheduled. Report any side effects to a psychiatric outpatient provider, a primary care provider, or other health pharmacy customer care specialist. Address any questions or problems concerning the psychotropic medications with a psychiatric outpatient provider, a primary care provider, or other health pharmacy customer care specialist. Contact [facility] or [facility], or go to the nearest emergency room, if you are ever a danger to yourself/others, or unable to care for yourself. As soon as possible, establish a routine medication management treatment with a psychiatric provider, establish routine therapy appointments, and follow-up with a primary care provider. LEGAL COURSE: Patient was admitted on an M1 for involuntary psychiatric hospitalization. During the course of the patient's hospitalization, the patient was placed on a short-term certification. At time of discharge, short- term certification was transferred to [facility]. ATTITUDE AT TIME OF DISCHARGE: The patient's attitude was positive at the time of discharge and the patient reports to looking forward to continuing her treatment at [facility]. The patient reports she feels safe to discharge and contracts for safety. The patient states she will continue medications as prescribed. The patient reports she understands the information that has been provided to her and she understands, accepts, and agrees to psychotropic medications. LABS AND STUDIES: Currently there is a pending lab for HIV type 1 and 2 antibody group that was ordered this morning at 0738. This [employer]PECTOR contacted lab to notify lab of order, and lab to run lab and post results. When the lab results are in, the results will be communicated to [facility] and patient where the patient will be hospitalized for continued treatment. ADVANCED DIRECTIVES: There were no advanced directives on file and the patient was full code during hospitalization. The following psychotropic medication treatment informed consent and recommendations were provided to the patient at time of discharge. Patient reports she understands, accepts, and agrees to the information that has been provided. PSYCHOTROPIC MEDICATION TREATMENT INFORMED CONSENT and RECOMMENDATIONS: Review nature of condition, diagnosis, and prognosis. Review nature and purpose of psychotropic medication treatment. Review type of psychotropic medications being prescribed. Review risk and benefits of psychotropic medication treatment. Review probable length of time will need to take medications. Review risk and benefits of not undergoing psychotropic medication treatment. Review alternative treatments to psychotropic medications. Review psychotropic medications contraindications, side effects, and importance of reporting any side effects to a psychiatric provider, primary care provider, or other health pharmacy customer care specialist. Review importance of her asking a psychiatric provider or primary care provider any questions or problems concerning the psychotropic medications. Review importance of reporting to a psychiatric provider, primary care provider, or other health pharmacy customer care specialist if she plans to or becomes . Review safety plan and the importance to contact [facility] or [facility] , or go to the nearest emergency room, if ever a danger to yourself/others, or unable to care for yourself. Recommend upon discharge to establish routine medication management treatment with a psychiatric provider, establish routine therapy appointments, and follow-up with a primary care provider. Verify patient understands, accepts, and agrees to the information that has been provided. /[id number]/MODL MTDD
--- NOTE | 2018-04-30 12:16 | ASMTBHDC ---
Notes Note: Notes: CC contacted [facility] at requesting Ambulance transportation for client via [facility]. . [facility] cleared client to be admitted to their facility, etc. CC called [facility] and provided them with an up date on client's ETA. [facility] provided the time of "around 2pm," to this principal technical writer which was passed along to [facility]. Date Signed: 04/30/2018 12:15 PM Electronically Signed By:Sharif Sears
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
[2018-05-03 03:37] LABS: HIV TYPE 1 AND 2 NEGATIVE (NEGATIVE)
--- NOTE | 2018-05-03 15:09 | PDCONSULT ---
Assisted Living Home Director Note: HIV 1&2 antibody group results negative. Faxed to [facility] where patient is currently being treated.
== END 2018-04-30 13:55 | DRG 885 ==
LOC: EDUNIT# → BBEH 04-23 15:46
PROVIDERS: ADMIT Registered Nurse; ATTEND Registered Nurse
DX: F31.5 Bipolar disorder, current episode depressed, severe, with psychotic features (principal); N76.0 Acute vaginitis
CPT/HCPCS: 80305; G0480; J1200; J1630; J2060; J2250